=== PATIENT | female | born 1970 | race African-American/Black ===

== ENCOUNTER 2016-12-10 16:45 | Emergency (ER) | payer OTHER ==
[~2016-12-10] VITALS: Ht 170.2 cm; Wt 105.0 kg
[~2016-12-10 16:45] MED LIST: TRAM50TA PO; [UNRECOGNIZED DRUG - OTHER]; trinessa
[2016-12-10 16:47] VITALS: BP 138/84; PULSE 91; RESP 14; TEMP 98.5; O2SAT 98
== END 2016-12-10 19:26 | disposition left against medical advice (07) ==
LOC: NED 16:45
DX: R10.9 Unspecified abdominal pain (principal); Z53.21 Procedure and treatment not carried out due to patient leaving prior to being seen by health care provider
CPT/HCPCS: 99281

== ENCOUNTER 2018-01-11 01:49 | Emergency (ER) | payer OTHER ==
[~2018-01-11] VITALS: Ht 170.2 cm; Wt 100.2 kg
[2018-01-11 01:56] VITALS: BP 129/80; PULSE 100; RESP 20; TEMP 97.7; O2SAT 100
[2018-01-11 02:05] VITALS: BP 114/84; PULSE 87; RESP 14; O2SAT 100
[2018-01-11] MEDS ORDERED: SODIUM CHLOR 0.9% 1000 ML INJ 1,000 ML IV SCH (02:06)
--- NOTE | 2018-01-11 02:14 | PD ---
HPI Chief Complaint: GI Complaint Time Seen by Provider: 02:12 Travel History International Travel<30 days: No Contact w/Intl Traveler<30days: No Traveled to known affect area: No History of Present Illness HPI 47-year-old female patient presents to the ER today for nausea, vomiting, diarrhea starting at 5 PM today. She has been having abdominal cramping pains which she rates at an 8 out of 10. She has been having tingling in her hands. She denies any fevers or other symptoms. She denies any sick contacts. Modifying Factors: None Associated Signs & Symptoms: Nausea, vomiting, diarrhea, abdominal cramping, paresthesias Risk Factors: None PFSH Past Medical History Cancer: No Diabetes: No Hepatitis: No Hiatal Hernia: No Thyroid Disease: No Past Surgical History Abdominal Surgery: Yes ([facility] ) Cholecystectomy: Yes (1995) Pacemaker: No Social History Alcohol Use: Yes (wine) Tobacco Use: No Substance Use: No Allergies-Medications (Allergen,Severity, Reaction): Coded Allergies: No Known Allergies (Verified Adverse Reaction, Unknown, 01/11/18) Reported Meds & Prescriptions Reported Meds & Active Scripts Active Reported Trinessa (Norgestimate-Ethinyl Estradiol) 0.18/0.215/0.25 mg-35 Mcg Tab 1 Tab PO DAILY Review of Systems Except as stated in HPI: all other systems reviewed are Neg Physical Exam Narrative GENERAL: Well-developed middle-aged -[place] female patient currently in mild to moderate distress. Awake and oriented 3. SKIN: Focused skin assessment warm/dry. HEAD: Atraumatic. Normocephalic. EYES: Pupils equal and round. No scleral icterus. No injection or drainage. ENT: No nasal bleeding or discharge. Mucous membranes pink and moist. NECK: Trachea midline. No JVD. Supple. CARDIOVASCULAR: Regular rate and rhythm. No murmur appreciated. RESPIRATORY: No accessory muscle use. Clear to auscultation. Breath sounds equal bilaterally. GASTROINTESTINAL: Abdomen soft, non-tender, nondistended. Hepatic and splenic margins not palpable. MUSCULOSKELETAL: No obvious deformities. No clubbing. No cyanosis. No edema. NEUROLOGICAL: Awake and alert. No obvious cranial nerve deficits. Motor grossly within normal limits. Normal speech. PSYCHIATRIC: Anxious mood and affect; insight and judgment normal. Data Data Last Documented VS Vital Signs Date Time Temp Pulse Resp B/P (MAP) Pulse Ox O2 Delivery O2 Flow Rate FiO2 01/11/18 02:05 87 14 114/84 (94) 100 Room Air 01/11/18 01:56 97.7 Orders Orders Complete Blood Count With Diff (01/11/18 02:06) Comprehensive Metabolic Panel (01/11/18 02:06) Lipase (01/11/18 02:06) Iv Access Insert/Monitor (01/11/18 02:06) Ecg Monitoring (01/11/18 02:06) Oximetry (01/11/18 02:06) Ondansetron Inj (Zofran Inj) (01/11/18 02:15) Sodium Chlor 0.9% 1000 Ml Inj (Ns 1000 M (01/11/18 02:06) Sodium Chloride 0.9% Flush (Ns Flush) (01/11/18 02:15) Labs Laboratory Tests Test 01/11/18 02:13 White Blood Count 11.2 TH/MM3 Red Blood Count 5.42 MIL/MM3 Hemoglobin 14.0 GM/DL Hematocrit 42.5 % Mean Corpuscular Volume 78.4 FL Mean Corpuscular Hemoglobin 25.9 PG Mean Corpuscular Hemoglobin Concent 33.0 % Red Cell Distribution Width 14.0 % Platelet Count 263 TH/MM3 Mean Platelet Volume 10.1 FL Neutrophils (%) (Auto) 86.8 % Lymphocytes (%) (Auto) 9.1 % Monocytes (%) (Auto) 2.8 % Eosinophils (%) (Auto) 0.1 % Basophils (%) (Auto) 1.2 % Neutrophils # (Auto) 9.8 TH/MM3 Lymphocytes # (Auto) 1.0 TH/MM3 Monocytes # (Auto) 0.3 TH/MM3 Eosinophils # (Auto) 0.0 TH/MM3 Basophils # (Auto) 0.1 TH/MM3 CBC Comment DIFF FINAL Differential Comment Blood Urea Nitrogen 8 MG/DL Creatinine 0.98 MG/DL Random Glucose 134 MG/DL Total Protein 8.0 GM/DL Albumin 3.3 GM/DL Calcium Level 8.9 MG/DL Alkaline Phosphatase 86 U/L Aspartate Amino Transf (AST/SGOT) 18 U/L Alanine Aminotransferase (ALT/SGPT) 26 U/L Total Bilirubin 0.9 MG/DL Sodium Level 141 MEQ/L Potassium Level 3.9 MEQ/L Chloride Level 109 MEQ/L Carbon Dioxide Level 19.9 MEQ/L Anion Gap 12 MEQ/L Estimat Glomerular Filtration Rate 74 ML/MIN Lipase 86 U/L [facility] Medical Decision Making Medical Screen Exam Complete: Yes Emergency Medical Condition: Yes Medical Record Reviewed: Yes Interpretation(s) Laboratory Tests Test 01/11/18 02:13 White Blood Count 11.2 TH/MM3 (4.0-11.0) Red Blood Count 5.42 MIL/MM3 (4.00-5.30) Mean Corpuscular Volume 78.4 FL (80.0-100.0) Mean Corpuscular Hemoglobin 25.9 PG (27.0-34.0) Neutrophils (%) (Auto) 86.8 % (16.0-70.0) Neutrophils # (Auto) 9.8 TH/MM3 (1.8-7.7) Random Glucose 134 MG/DL (74-106) Albumin 3.3 GM/DL (3.4-5.0) Chloride Level 109 MEQ/L (98-107) Carbon Dioxide Level 19.9 MEQ/L (21.0-32.0) Estimat Glomerular Filtration Rate 74 ML/MIN (>89) Differential Diagnosis Gastroenteritis versus dehydration versus metabolic issues versus pancreatitis Narrative Course Patient was given IV fluids and nausea medications in the ER. Lab work was fairly unremarkable for any significant metabolic issues. Lipase is within normal limits. Patient's abdomen is fairly benign and I am not suspecting acute intra-abdominal process in this case. my plan would be to release her at this point with follow-up to primary care physician with further symptomatic relief for nausea and vomiting. Return for any worsening of symptoms as necessary. The plan was discussed with her and she states understanding. Diagnosis Primary Impression: Nausea vomiting and diarrhea Med/Other Pt SpecificInfo: Prescription(s) given Scripts Ondansetron Odt (Zofran Odt) 4 Mg Tab 4 MG SL Q6HR Y for Nausea/Vomiting, #7 TAB 0 Refills Prov: Justa Peters MD 01/11/18 Disposition: 01 DISCHARGE HOME Condition: Stable Justa Peters MD Jan 11, 2018 02:14
[2018-01-11] MEDS ORDERED: SODIUM CHLORIDE 0.9% FLUSH 10 ML FLUSH IV FLUSH PRN (02:15)
[2018-01-11] MEDS ORDERED: ONDANSETRON HCL 4 MG/2 ML VIAL IVP ONE (02:15)
[2018-01-11] MEDS ORDERED: TRINTAB7 PO (02:22)
[2018-01-11 02:30] LABS: AUTOMATED NEUTROPHIL # 9.8 TH/MM3 (1.8-7.7); BASOPHIL # 0.1 TH/MM3 (0-0.2); BASOPHIL % 1.2 % (0.0-2.0); EOSINOPHIL % 0.1 % (0.0-4.0); HEMATOCRIT 42.5 % (35.0-46.0); LYMPH % 9.1 % (9.0-44.0); MEAN CELL VOLUME 78.4 FL (80.0-100.0); MEAN CORPUSCULAR HEMOGLOBIN 25.9 PG (27.0-34.0); MEAN PLATELET VOLUME 10.1 FL (7.0-11.0); MONO % 2.8 % (0.0-8.0); MONOCYTE # 0.3 TH/MM3 (0-0.9); NEUT % 86.8 % (16.0-70.0); PLATELET COUNT 263 TH/MM3 (150-450); RED BLOOD COUNT 5.42 MIL/MM3 (4.00-5.30); WHITE BLOOD COUNT 11.2 TH/MM3 (4.0-11.0)
[2018-01-11 02:35] LABS: CHLORIDE 109 MEQ/L (98-107); SODIUM (NA) 141 MEQ/L (136-145)
[2018-01-11 02:38] LABS: CALCIUM 8.9 MG/DL (8.5-10.1)
[2018-01-11 02:39] LABS: ALBUMIN 3.3 GM/DL (3.4-5.0); BICARBONATE 19.9 MEQ/L (21.0-32.0); BLOOD UREA NITROGEN 8 MG/DL (7-18); GLUCOSE,RANDOM 134 MG/DL (74-106)
[2018-01-11 02:42] LABS: ALT (GPT) 26 U/L (10-53); AST (GOT) 18 U/L (15-37); CREATININE 0.98 MG/DL (0.50-1.00); GLOMERULAR FILTRATION RATE 74 ML/MIN (>89)
[2018-01-11 02:43] LABS: TOTAL BILIRUBIN ADULT 0.9 MG/DL (0.2-1.0)
[2018-01-11 02:45] LABS: ALKALINE PHOSPHATASE 86 U/L (45-117)
[2018-01-11] MEDS ORDERED: ZOFR4TAB3 SL (03:23)
[2018-01-11 03:46] VITALS: BP 98/67
== END 2018-01-11 03:50 | disposition home or self-care (01) ==
LOC: PHED 01:49
DX: R11.2 Nausea with vomiting, unspecified (principal); R19.7 Diarrhea, unspecified
CPT/HCPCS: 80053; 83690; 85025; 96361; 96374; 99284; J2405; J7030